=== PATIENT | female | born 1990 | race Caucasian/White ===

== ENCOUNTER 2019-11-04 11:16 | Outpatient (CLI) | payer OTHER ==
[2019-11-04 11:40] LABS: HGB - HEMOGLOBIN 9.6 g/dL (12.0-16.0); MEAN CORPUSCULAR HEMOGLOBIN 27.4 pg (27.0-31.0); MEAN CORPUSCULAR HGB CONC 32.8 g/dL (32.0-36.0); MEAN CORPUSCULAR VOLUME 83.5 fL (81.0-99.0); MEAN PLATELET VOLUME 9.8 fL (7.9-10.8); RED BLOOD COUNT 3.51 10^6/uL (4.20-5.40); RED CELL DISTRIBUTION WIDTH 12.3 % (12.0-15.0); WHITE BLOOD COUNT 11.4 x10^3/uL (4.8-10.8)
== END 2019-11-04 11:17 | disposition home or self-care (01) ==
LOC: LAB 11:16
PROVIDERS: ATTEND Advanced Practice Midwife
DX: O26.899 Other specified pregnancy related conditions, unspecified trimester (principal); D64.9 Anemia, unspecified; Z3A.00 Weeks of gestation of pregnancy not specified
CPT/HCPCS: 36415; 85027

== ENCOUNTER 2019-11-26 07:00 | Outpatient (CLI) | payer OTHER ==
[2019-11-26 20:36] LABS: TRICHOMONAS VAGINALIS DNA NEGATIVE (NEGATIVE)
== END 2019-11-26 23:59 | disposition home or self-care (01) ==
LOC: LAB.R 07:00
PROVIDERS: ATTEND Advanced Practice Midwife
DX: Z34.00 Encounter for supervision of normal first pregnancy, unspecified trimester (principal); Z36.85 Encounter for antenatal screening for Streptococcus B
CPT/HCPCS: 87077; 87081; 87491; 87591; 87661; 87797

== ENCOUNTER 2019-12-22 12:22 | Inpatient (IN) | payer OTHER ==
[2019-12-22 13:05] LABS: RUPTURE OF MEMBRANES PLUS POSITIVE (NEGATIVE)
[2019-12-22] MEDS ORDERED: CARBOPROST TROMETHAMINE 250 MCG/ML AMP IM PRN (13:32)
[2019-12-22] MEDS ORDERED: OXYTOCIN/SODIUM CHLORIDE 500 ML IV PRN (13:32)
[2019-12-22] MEDS ORDERED: OXYTOCIN 10 UNIT/ML VIAL IM PRN (13:32)
[2019-12-22] MEDS ORDERED: ONDANSETRON 4 MG/2 ML VIAL IVP PRN ×2 (13:32→17:29)
[2019-12-22] MEDS ORDERED: LIDOCAINE-MPF 1% 30 ML VIAL ID PRN (13:32)
[2019-12-22] MEDS ORDERED: TRANEXAMIC ACID 1,000 MG in SODIUM CHLORIDE 0.9% 100ML 100 ML IV PRN (13:32)
[2019-12-22] MEDS ORDERED: fentaNYL 100 MCG/2 ML VIAL IVP PRN (13:32)
[2019-12-22] MEDS ORDERED: ACETAMINOPHEN 325 MG TABLET PO PRN (13:32)
[2019-12-22] MEDS ORDERED: SODIUM CHLORIDE FLUSH 0.9% 10 ML SYRINGE IVP PRN (13:32)
[2019-12-22] MEDS ORDERED: METHYLERGONOVINE 0.2 MG/ML VIAL IM PRN (13:32)
[2019-12-22] MEDS ORDERED: TERBUTALINE 1 MG/ML VIAL SUBQ PRN (13:32)
[2019-12-22] MEDS ORDERED: miSOPROStoL 200 MCG TABLET BC ONE (13:37)
--- NOTE | 2019-12-22 13:42 | HISTORY & PHYSICAL EXAMINATION ---
History of Present Illness - History of Present Illness HPI Comment/Other: CC: leaking of water HPI: [place]-tinged LOF at 11:00. No contractions. Good FM. ROS: feeling well, no problems PMH: Iron deficiency anemia PSH: tonsillectomy & adenoidectomy SH: no t/e/d. 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 Allergies: PCN --> throat closes Meds: iron, omeprazole, PNV FH: no anesthesia problems OB: G1 is current. THEO by LMP c/w 20w US = 12/21 Rh+, RI, , GBS +, normal pap Tdap s/p O: rom+ and nitrizine + Vertex by US Abd soft, nt/nd. EFW 7.5# lazaro A/P: 29yo G1 at 40w0d with SROM clear 3h ago, minimal UC since then but they are warming up. Will augment with pitocin to achieve a labor pattern. GBS + with severe PCN allergy will give vancomycin. Anticipate . wellbeing: category 1 NST, normal anatomy scan, declined genetic screening --Hct 29 in 10/2019. Got an iron transfusion. Get Hct, if low then do type and cross. Meds/Allgy - Allergies Allergies/Adverse Reactions: Allergies Allergy/AdvReac Type Severity Reaction Status Date / Time Penicillins Allergy Severe Hives Verified 12/22/19 13:46 Exam - Vital Signs Vital Signs: Vital Signs x48h Temp Pulse Resp BP Pulse Ox 12/22/19 13:05 98.8 F 12/22/19 12:47 98.6 F 79 18 117/64 98
[2019-12-22] MEDS ORDERED: LACTATED RINGERS 1,000 ML IV SCH (14:00)
[2019-12-22] MEDS ORDERED: VANCOMYCIN INJ 2 GM in SODIUM CHLORIDE 0.9% 500 ML IV ONE (14:06)
[2019-12-22 14:40] LABS: BASOPHILS % (AUTO) 0.3 %; EOSINOPHILS % (AUTO) 0.3 %; HGB - HEMOGLOBIN 11.5 g/dL (12.0-16.0); LYMPHOCYTES # (AUTO) 1.2 10^3/uL (1.5-3.5); LYMPHOCYTES % (AUTO) 10.4 %; MEAN CORPUSCULAR HEMOGLOBIN 29.5 pg (27.0-31.0); MEAN CORPUSCULAR HGB CONC 34.1 g/dL (32.0-36.0); MEAN CORPUSCULAR VOLUME 86.4 fL (81.0-99.0); MONOCYTES # (AUTO) 0.5 10^3/uL (0.0-1.0); MONOCYTES % (AUTO) 4.2 %; NEUTROPHILS # (AUTO) 9.7 10^3/uL (1.5-6.6); NEUTROPHILS % (AUTO) 84.2 %; PLT - PLATELET COUNT 209 10^3/uL (130-450); WHITE BLOOD COUNT 11.5 x10^3/uL (4.8-10.8)
[2019-12-22] MEDS: LACTATED RINGERS 1,000 ML IV SCH ×2 (14:40→21:56)
[2019-12-22] MEDS ORDERED: OXYTOCIN/SODIUM CHLORIDE 500 ML IV SCH (15:00)
--- NOTE | 2019-12-22 16:47 | PROVIDER PROGRESS NOTE ---
Subjective - Subjective Subjective: Lots of contraction pain. AVSS NST now category 1 [place] irritable to q4 Flushed after vancomycin for a few min Bradycardic event associated with getting up to the restroom. Resolved with hands and knees. Pitocin was at 1 and is now off. FSE placed after verbal consent. Pt would like epidural, will place now. Watch UC while pit is off and palpate for intensity. Consider IUPC to manage augmentation. Discussed with pt and husb likely episode of cord compression that has resolved, they have no questions. Maintain vancomycin as GBS prophylaxis with a brief episode of flu shing that may not be related at all to the vanco. Objective - Vital Signs/Intake & Output Vital Signs: Vital Signs x48h Temp Pulse Resp BP Pulse Ox 12/22/19 13:05 98.8 F 12/22/19 12:47 98.6 F 79 18 117/64 98 Intake & Output: Intake & Output 12/19/19 12/20/19 12/21/19 12/22/19 23:59 23:59 23:59 23:59 Output Total 300 Balance -300 - Lab Results Fish Bones: 12/22/19 14:15 Other Labs: Lab Results x24hrs 12/22/19 12/22/19 12/22/19 Range/Units 14:50 14:15 14:15 WBC 11.5 H (4.8-10.8) x10^3/uL RBC 3.90 L (4.20-5.40) 10^6/uL Hgb 11.5 L (12.0-16.0) g/dL Hct 33.7 L (37.0-47.0) % MCV 86.4 (81.0-99.0) fL MCH 29.5 (27.0-31.0) pg MCHC 34.1 (32.0-36.0) g/dL RDW 18.0 H (12.0-15.0) % Plt Count 209 (130-450) 10^3/uL MPV 10.0 (7.9-10.8) fL Neut # (Auto) 9.7 H (1.5-6.6) 10^3/uL Lymph # (Auto) 1.2 L (1.5-3.5) 10^3/uL [place] # (Auto) 0.5 (0.0-1.0) 10^3/uL Eos # (Auto) 0.0 (0.0-0.7) 10^3/uL Baso # (Auto) 0.0 (0.0-0.1) 10^3/uL Absolute Nucleated RBC 0.00 x10^3/uL Nucleated RBC % 0.0 /100WBC Membranes Rupture (NEGATIVE) Blood Type A POSITIVE Blood Type Recheck A POSITIVE Antibody Screen NEGATIVE 12/22/19 Range/Units 12:38 WBC (4.8-10.8) x10^3/uL RBC (4.20-5.40) 10^6/uL Hgb (12.0-16.0) g/dL Hct (37.0-47.0) % MCV (81.0-99.0) fL MCH (27.0-31.0) pg MCHC (32.0-36.0) g/dL RDW (12.0-15.0) % Plt Count (130-450) 10^3/uL MPV (7.9-10.8) fL Neut # (Auto) (1.5-6.6) 10^3/uL Lymph # (Auto) (1.5-3.5) 10^3/uL [place] # (Auto) (0.0-1.0) 10^3/uL Eos # (Auto) (0.0-0.7) 10^3/uL Baso # (Auto) (0.0-0.1) 10^3/uL Absolute Nucleated RBC x10^3/uL Nucleated RBC % /100WBC Membranes Rupture POSITIVE A (NEGATIVE) Blood Type Blood Type Recheck Antibody Screen
[2019-12-22] MEDS ORDERED: SODIUM CHLORIDE FLUSH 0.9% 10 ML SYRINGE IVP SCH (17:00)
--- NOTE | 2019-12-22 17:05 | ANESTHESIA ---
Pre-Anesthesia VS, & Labs - Diagnosis active labor - Procedure vaginal delivery Vital Signs: Temp Pulse Resp BP Pulse Ox 37.1 C 79 18 117/64 98 12/22/19 13:05 12/22/19 12:47 12/22/19 12:47 12/22/19 12:47 12/22/19 12:47 Height 5 ft 7 in Weight (kg) 103.419 kg - NPO Other (clear liquids) - Is Patient ?: Yes - Lab Results Current Lab Results: Laboratory Tests 12/22/19 14:50: Blood Type A POSITIVE, Antibody Screen NEGATIVE 12/22/19 14:15: Blood Type Recheck A POSITIVE 12/22/19 14:15: WBC 11.5 H, RBC 3.90 L, Hgb 11.5 L, Hct 33.7 L, MCV 86.4, MCH 29.5, MCHC 34.1, RDW 18.0 H, Plt Count 209, MPV 10.0, Neut # (Auto) 9.7 H, Lymph # (Auto) 1.2 L, [place] # (Auto) 0.5, Eos # (Auto) 0.0, Baso # (Auto) 0.0, Absolute Nucleated RBC 0.00, Nucleated RBC % 0.0 Fish Bones: 12/22/19 14:15 Home Medications and Allergies Active Medications Acetaminophen (Tylenol) 650 mg PO Q6H PRN PRN Reason: Abdominal Pain Carboprost Tromethamine (Hemabate) 250 mcg IM Q15M PRN PRN Reason: Step 4: Hemorrhage protocol Stop: 12/24/19 13:33 Fentanyl (Fentanyl) 50 mcg IVP Q1H PRN PRN Reason: PAIN Oxytocin/Sodium Chloride (Pitocin/Sodium Chloride) 500 mls @ 999 mls/hr IV PRN PRN; Protocol PRN Reason: POST- HEMORR PREVENTION Stop: 12/24/19 13:33 Tranexamic Acid 1,000 mg/ (Sodium Chloride) 110 mls @ 660 mls/hr IV ONCE PRN PRN Reason: EBL >1200mL and within 3hr Stop: 12/24/19 13:33 Oxytocin/Sodium Chloride (Pitocin/Sodium Chloride) 500 mls @ 1 mls/hr IV TITR FANTASMA; Protocol Last Admin: 12/22/19 15:05 Dose: 1 milliunit/min, 1 mls/hr Documented by: Lactated Ringer's (Lr) 1,000 mls @ 75 mls/hr IV .[id number] [facility] Last Admin: 12/22/19 14:40 Dose: 75 mls/hr Documented by: Vancomycin HCl 1 gm/ Sodium (Chloride) 250 mls @ 167 mls/hr IV Q12H [facility] Lidocaine HCl (Xylocaine-Mpf 1% Vial) 30 ml ID ONCE PRN PRN Reason: PERINEAL REPAIR Stop: 12/24/19 13:33 Methylergonovine Maleate (Methergine Inj) 0.2 mg IM ONCE PRN PRN Reason: Step 2: Hemorrhage protocol Stop: 12/24/19 13:33 Ondansetron HCl (Zofran Inj) 4 mg IVP Q4H PRN PRN Reason: Nausea / Vomiting Oxytocin (Pitocin) 10 unit IM ONCE PRN PRN Reason: Step one: If no IV access Stop: 12/24/19 13:33 Sodium Chloride (Normal Saline Flush 0.9%) 10 ml IVP PRN PRN PRN Reason: NEEDED PER PROVIDER ORDERS Sodium Chloride (Normal Saline Flush 0.9%) 10 ml IVP 0100,0900,1700 [facility] Terbutaline Sulfate (Terbutaline) 0.25 mg SUBQ Q1H PRN PRN Reason: distress Allergies/Adverse Reactions: Allergies Allergy/AdvReac Type Severity Reaction Status Date / Time Penicillins Allergy Severe Hives Verified 12/22/19 13:46 Anes History & Medical History - Anesthetic History Anesthesia Complications: reports: No previous complications - Medical History Cardiovascular: reports: None Pulmonary: reports: None Gastrointestinal: reports: None Urinary: reports: None Neuro: reports: None Musculoskeletal: reports: None Endocrine/Autoimmune: reports: None Blood Disorders: reports: Anemia Smoking Status: Never smoker Psychosocial: reports: Anxiety - Surgical History Eyes Ears Nose Throat (EENT): Tonsil/Adenoidectomy - Obstetrical History : 1 Parity: 0 Events: positive: None Complications: positive: Treated for GBS/UTI Exam General: Alert, Oriented x3, Cooperative, No acute distress Dental: WNL Mouth Opening: Can't Open Mouth Mallampati classification: II Thyromental Distance: 4-6 cm Mental/Cognitive Status: Alert/Oriented X3, Normal for patient Plan Anesthesia Type: Epidural Consent for Procedure(s) Verified and Reviewed: Yes Code Status: Attempt Resuscitation ASA classification: 2-Mild systemic disease Is this case an emergency?: No
[2019-12-22] MEDS ORDERED: ROPIVACAINE 0.2% 200 MG/100 ML BAG EP ONE (17:06)
[2019-12-22] MEDS ORDERED: NALOXONE 0.4 MG/ML VIAL IVP PRN (17:29)
[2019-12-22] MEDS ORDERED: NALBUPHINE 10 MG/ML AMP IVP PRN (17:29)
[2019-12-22] MEDS ORDERED: ePHEDrine 50 MG/ML VIAL IVP PRN (17:29)
[2019-12-22] MEDS ORDERED: ROPIVACAINE 0.2% 200 MG/100 ML BAG EP PRN (17:29)
[2019-12-23] MEDS ORDERED: miSOPROStoL 200 MCG TABLET ONE (00:45)
[2019-12-23] MEDS: OXYTOCIN/SODIUM CHLORIDE 500 ML IV PRN ×2 (01:40→05:20)
[2019-12-23] MEDS ORDERED: WITCH HAZEL/GLYCERIN 1 PAD TOP PRN (01:54)
[2019-12-23] MEDS ORDERED: HYDROCORTISONE 1% CREAM 28 GM TUBE PR PRN (01:54)
[2019-12-23] MEDS ORDERED: SIMETHICONE CHEW 80 MG TABLET PO PRN (01:54)
[2019-12-23] MEDS ORDERED: ONDANSETRON ODT 4 MG TABLET TL PRN (01:54)
--- NOTE | 2019-12-23 01:59 | DELIVERY NOTE ---
Delivery Note - Labor Labor: positive: Spontaneous - Delivery Method Delivery Method: positive: Spontaneous vaginal delivery - Presentation Presentation: positive: Vertex - Nuchal Cord Nuchal Cord: positive: None - Anesthetic Anesthetic Type: - Amniotic Fluid Description Amniotic Fluid Description: positive: Clear - Episiotomy Type Episiotomy Type: positive: None - Laceration Laceration: positive: None - Delivery Outcome Delivery Outcome: positive: Livebirth - [place]: positive: Placed in direct skin contact with mother, Suctioned, Bulb syringe, Stimulated, Warmed, [place] used [place] sex: positive: Female : Apgars 8/9 - Cord Cord: positive: 3 vessels - Placenta Placenta: positive: Intact, Spontaneous - Estimated Blood Loss Estimated Blood Loss (in cc): 50 - Post Delivery Events Post Delivery Events: positive: No post delivery events - Delivery Comments (Free Text/Narrative) Delivery Comments (Free Text/Narrative): EXTREMELY good pusher. Went from 3cm to complete in 5h. Uncomplicated .
[2019-12-23] MEDS ORDERED: VANCOMYCIN INJ 1 GM in SODIUM CHLORIDE 0.9% 250 ML IV SCH (03:00)
[2019-12-23] MEDS: IBUPROFEN 600 MG TABLET PO SCH ×4 (05:14→22:59)
[2019-12-23] MEDS: DOCUSATE SODIUM 100 MG CAPSULE PO SCH ×2 (11:24→23:56)
--- NOTE | 2019-12-23 17:19 | PROVIDER PROGRESS NOTE ---
Subjective - Subjective Subjective: S: feeling well, baby hasn't latched in 4h. Prior feed went great. No heavy bleeding or mood problems. No significant pain. Urinating and eating well. O: AVSS, alert smiling NAD, abd soft nt/nd, fundus firm NT at umbilicus, no LE edema A/P: 29yo P1 PPD#0 s/p at term, doing very well. Rh+, RI, pap normal, s/p Tdap Anticipate routine care. Pt will try to get baby on breast now. Objective - Vital Signs/Intake & Output Intake & Output: Intake & Output 12/20/19 12/21/19 12/22/19 12/23/19 23:59 23:59 23:59 23:59 Intake Total 1333.75 1458.333 Output Total 500 1600 Balance 833.75 -141.667 - Lab Results Fish Bones: 12/22/19 14:15
[2019-12-24] MEDS: IBUPROFEN 600 MG TABLET PO SCH ×2 (04:42→10:56)
[2019-12-24] MEDS: DOCUSATE SODIUM 100 MG CAPSULE PO SCH ×2 (10:56→21:39)
--- NOTE | 2019-12-24 11:12 | PROVIDER PROGRESS NOTE ---
Subjective - Subjective Subjective: S: same as yesterday but has had a BM and latch/feed well O: AVSS, smiling NAD, abd soft nt/nd, fundus firm nt 1cm below U, no LE edema A/P: doing well, staying full 48h due to GBS not fully treated. Anticipate routine care. Objective - Vital Signs/Intake & Output Vital Signs: Vital Signs x48h Temp Pulse Resp BP Pulse Ox 12/24/19 09:16 98.4 F 67 18 124/67 96 12/24/19 03:59 98.6 F 73 16 120/67 96 Intake & Output: Intake & Output 12/21/19 12/22/19 12/23/19 12/24/19 23:59 23:59 23:59 23:59 Intake Total 1333.75 2458.333 Output Total 500 1600 Balance 833.75 858.333 - Lab Results Fish Bones: 12/22/19 14:15
--- NOTE | 2019-12-25 08:32 | Discharge Plan ---
Discharge Plan Problem Reviewed?: Yes Disposition: Home, Self Care Diet: Regular Activity Restrictions: Routine Shower Restrictions: No No Smoking: If you smoke, Please STOP! Call for help. Follow-up with: Andrew Mcmanus MD [Provider Admit Priv/Credential] - 6 Weeks (1w and 6w)
[2019-12-25 08:47] VITALS: BP 122/64
--- NOTE | 2019-12-25 08:59 | DISCHARGE SUMMARY ---
Physician: Vivian Ibrahim MD DATE OF ADMISSION: 12/22/2019 DATE OF DISCHARGE: 12/25/2019 ADMISSION DIAGNOSES 1. Premature rupture of membranes at term. 2. Generalized anxiety disorder. DISCHARGE DIAGNOSES 1. Status post spontaneous vaginal delivery at term. 2. Generalized anxiety disorder. OPERATIONS AND PROCEDURES: On 12/23/2019, spontaneous vaginal delivery of a liveborn female. EBL wa s 50 mL. There were no lacerations. Please note that patient is both an extremely good pusher and s he went from 3 cm to complete in 5 hours. HOSPITAL COURSE: Patient was admitted and was augmented with Pitocin. She was group B strep positiv e with a SEVERE PENICILLIN ALLERGY and for this she received vancomycin. She got an epidural. Her b irth was uncomplicated. By day 2, she was eating, ambulating, urinating, and breastfeedin g without difficulties. Her pain was under good control and she did not have any heavy bleeding. Sh kelsie was afebrile with normal vital signs. Alert, pleasant, in no apparent distress. Affect is anxious and fidgety. Abdomen is soft, nontender, nondistended. Fundus firm, nontender, and at the umbilicu s. No lower extremity clubbing, cyanosis or edema. We had a long discussion about her generalized anxiety disorder. She is not on medications for this and she chooses not to be. This has been a longstanding issue for her and is exacerbated by chronic intermittent insomnia. We discussed a higher risk of having significant problems and the need to call us p.r.n. decompensation and to go to the ER p.r.n. hallucinations. She will be given V istaril as it is short-acting and it might help her get some rest from time to time. We discussed st rategies to get effective help at night, so that she can sleep for as long as possible. DISPOSITION: Home. CONDITION: Good. TD: 12/25/2019 08:38
[2019-12-25] MEDS: DOCUSATE SODIUM 100 MG CAPSULE PO SCH (09:33)
[2019-12-25] MEDS: IBUPROFEN 600 MG TABLET PO SCH (09:33)
--- NOTE | 2019-12-25 10:22 | Labor Flowsheet ---
Labor Flowsheet Datetime Report Generated by CPN: 12/25/2019 10:22 Datetime: 12/25/2019 08:32 VITAL SIGNS NBP Sys/Destiny/Mean (mmHg): 122 : 64 : 77 Pulse: 73 LaborFlag: Labor Datetime: 12/24/2019 17:15 SpO2 (%): 99 Datetime: 12/23/2019 01:40 Medication Comments: PP pit up Datetime: 12/23/2019 01:36 UTERINE ACTIVITY Monitor Mode: External Frequency (min): 1.5-2 Quality: Strong Duration (sec): 60+ Pattern: Normal: <= 5 Contractions in 10 Minutes Resting Tone (Palpate): Relaxed ASSESSMENT A Monitor Mode: External US FHR Baseline Changes: No Baseline Change Variability: Moderate 6-25 bpm Accelerations: None Decelerations: Early; Late Category: Category II Datetime: 12/23/2019 01:30 PAIN Pain Presence: None/Denies Anesthesia Level Check: T10- Umbilicus Datetime: 12/23/2019 01:29 Patient Care Comments: internal FSE removed and external US placed per MD request Datetime: 12/23/2019 01:20 COMMUNICATION Communication: Provider at Bedside Datetime: 12/23/2019 01:15 Comments: decel with pushing Datetime: 12/23/2019 00:55 I/O Interventions: Ivy Discontinued Datetime: 12/23/2019 00:51 Contraction Comments: pushing Datetime: 12/23/2019 00:47 VAGINAL EXAM Dilatation (cm): 10.0 Effacement (%): 100 Station: 2 Exam by: Dr. Patrice Datetime: 12/23/2019 00:43 Temperature (C): 36.9 Datetime: 12/23/2019 00:36 Vaginal Bleeding: Moderate Datetime: 12/23/2019 00:33 Provider Notified (Name): Dr. Ibrahim Communication Comments: MD called, briefly updated and bedside RN requesting her to come in and ass ess pt. Will come in now. MO RN Datetime: 12/23/2019 00:32 Vaginal Exam Comments: possibly complete, not able to feel any cervix but FSE in way of complete ex am Datetime: 12/23/2019 00:28 MEDICATIONS Pitocin (milliunits): Discontinued Datetime: 12/23/2019 00:08 Patient Position/Activity: Right Lateral Datetime: 12/22/2019 23:27 Pitocin Checklist: At Least 1 Acceleration of 15 bpm x 15 Seconds in 30 Minutes or Adequate Variabi lity; No More than 1 Late Deceleration Occurred in Past 30 Minutes; No More than 2 Variable Decelerat ions > 60 Seconds in Duration and decreasing >60 bpm in 30 minutes; No More than 5 Uterine Contractio ns in 10 Minutes for any 20 Minute Interval; Uterus Palpates Soft between Contractions Datetime: 12/22/2019 23:00 Monitor Interventions for UA: [place] Adjusted Datetime: 12/22/2019 22:45 FHR Baseline Rate : 130 Datetime: 12/22/2019 21:02 Cervix, Position: Midposition Datetime: 12/22/2019 19:34 TEACHING Instructional Method: Verbal Plan of Care: Plan of Care Discussed; Vaginal Delivery; Labor Labor/Induction: Labor Stages; Augmentation; Interventions; Pushing Methods Pain Management: Epidural; Comfort Measures Medications: Pitocin Teaching Comments: 15min. Datetime: 12/22/2019 18:49 Respirations: 16 Datetime: 12/22/2019 18:45 Oxygen Method: Room Air Datetime: 12/22/2019 17:25 Epidural Procedure Other: Pump Started Datetime: 12/22/2019 17:17 Epidural Procedure: Test Dose Datetime: 12/22/2019 17:09 PROCEDURE TIME OUT Procedure Verify: Correct Patient Identity; Correct Side and Site are Marked; Accurate Procedure Co nsent Form; Agreement on Procedure to be Done; Correct Patient Position; Safety Precautions Based on Patient History or Medication Use ANESTHESIA Anesthesia Plans: Epidural Epidural Positioning: Sitting Datetime: 12/22/2019 17:00 Anesthesia Comments: yna at bedside Datetime: 12/22/2019 16:45 Monitor Interventions for FHR: FSE Applied Pain Coping: Requesting Pain Medication or Epidural Datetime: 12/22/2019 16:24 Cervix, Consistency: Soft Datetime: 12/22/2019 16:18 Notification Reason: Status Update; Status; Labor Status Datetime: 12/22/2019 16:15 Actions for Decelerations: Hands and Knees; Oxygen Applied; Pitocin Off; IV Bolus; Provider N otified Oxygen Amount (LPM): 10 Datetime: 12/22/2019 16:13 PATIENT CARE IV/Blood Work: IV Bolus Started Datetime: 12/22/2019 15:54 Comfort Measures: Breathing/Relaxation; Coaching; Hot/Cold Pack Datetime: 12/22/2019 14:45 Stage of : Labor
== END 2019-12-25 10:00 | disposition home or self-care (01) | DRG 807 ==
LOC: WFO 12:22 → FBP 12:26 → WFO 13:32 → FBP 13:33
PROVIDERS: ADMIT Obstetrics & Gynecology; ATTEND Obstetrics & Gynecology
PROC: 4A1H74Z Monitoring of Products of Conception, Cardiac Electrical Activity, Via Natural or Artificial Opening (ICD-10-PCS; 2019-12-22)
PROC: 10H073Z Insertion of Monitoring Electrode into Products of Conception, Via Natural or Artificial Opening (ICD-10-PCS; 2019-12-22)
PROC: 10E0XZZ Delivery of Products of Conception, External Approach (ICD-10-PCS; principal; 2019-12-23)
DX: O42.02 Full-term premature rupture of membranes, onset of labor within 24 hours of rupture (principal); Z37.0 Single live birth; O99.824 Streptococcus B carrier state complicating childbirth; O99.344 Other mental disorders complicating childbirth; F41.1 Generalized anxiety disorder; Z3A.40 40 weeks gestation of pregnancy; Z86.2 Personal history of diseases of the blood and blood-forming organs and certain disorders involving the immune mechanism; Z88.0 Allergy status to penicillin
CPT/HCPCS: 84112; 85025; 86850; 86900; 86901; 99213; A9270; J3370; J7120